=== PATIENT | male | born 1955 | race Caucasian/White ===

== ENCOUNTER → 2017-02-22 | Outpatient (CLI) | payer BC ==
[2017-02-22 11:49] LABS: Basophils % (A) 1 %; CH 31.9; CHCM 33.4; Eosinophils # (A) 0.2 k/uL (0-0.7); Eosinophils % (A) 2 %; HCT 50.5 % (39.0-53.0); HDW 2.28; HGB 16.2 gm/dL (13.0-17.5); Luc # (Auto) 0.22; Luc % (Auto) 3; Lymphocytes # (A) 2.3 k/uL (1.0-4.8); Lymphocytes % (A) 30 %; MCH 30.8 pg (25.0-35.0); MCV 96.1 fL (80.0-100.0); Mean Platelet Volume 7.2; Monocytes # (A) 0.7 k/uL (0-1.0); Monocytes % (A) 9 %; Neutrophils # (A) 4.2 k/uL (1.3-7.7); Neutrophils % (A) 55 %; RBC 5.25 m/uL (4.30-5.90); RDW 14.2 % (11.5-15.5); WBC 7.5 k/uL (3.8-10.6); WBC (Perox) 7.43
[2017-02-22 11:57] LABS: Prothrombin Time 9.8 sec (9.0-12.0)
[2017-02-22 12:19] LABS: Anion Gap 13 mmol/L; Blood Urea Nitrogen 17 mg/dL (9-20); Carbon Dioxide 26 mmol/L (22-30); Chloride 103 mmol/L (98-107); Non-African American GFR(MDRD) >60 (>60 ml/min/1.73 sqM); Potassium 4.4 mmol/L (3.5-5.1); Sodium 142 mmol/L (137-145)
[2017-02-22 12:58] LABS: Appearance,Urine Clear (Clear); Bilirubin,Urine Negative (Negative); Glucose,Urine (UA) Negative (Negative); Ketones,Urine Negative (Negative); Leukocyte Esterase,Urine Negative (Negative); Nitrite,Urine Negative (Negative); PH, Urine 5.5 (5.0-8.0); Protein,Urine Negative (Negative); Specific Gravity,Urine 1.018 (1.001-1.035); UA Billing (MACRO vs. MICRO) CHEM; Urobilinogen,Urine <2.0 mg/dL (<2.0)
== END | disposition home or self-care (01) ==
LOC: LABPAT 11:11
PROVIDERS: ATTEND Surgery
DX: Z01.812 Encounter for preprocedural laboratory examination (principal); I71.4 Abdominal aortic aneurysm, without rupture; Z79.01 Long term (current) use of anticoagulants
CPT/HCPCS: 36415; 80051; 81003; 82565; 84520; 85025; 85610; 85730; 86850; 86900; 86901

== ENCOUNTER → 2017-04-24 | Outpatient (CLI) | payer BC ==
--- NOTE | 2017-04-24 09:23 | CT ---
EXAMINATION TYPE: CT angio abdomen pelvis DATE OF EXAM: 04/24/2017 COMPARISON: 02/06/2017 HISTORY: 61-year-old male Complication of Vascular Prosthetic Device TECHNIQUE: Contiguous axial scanning of the abdomen and pelvis before and after administration of 100 ml Omnipaque 300 IV contrast. Imaging performed in the arterial phase. Delayed images were acquired . Coronal and sagittal MIP reconstructions performed. Additional 3-D reconstructions generated on a d edicated independent workstation. CT DLP: 3166 mGycm Automated exposure control for dose reduction was used. FINDINGS: Heart normal size without pericardial effusion. Some coronary vessel calcifications are noted and a m arker for coronary artery disease. Lung bases clear without pleural effusion. Liver enlarged measuring 21.4 cm craniocaudal. There is diffuse low attenuation suggesting fatty infi ltration. Portal venous system appears patent. No biliary ductal dilatation. Gallbladder, adrenal glands, left kidney, spleen, and pancreas appear within normal limits. Redemonstrated 5.1 cm exophytic cyst from the lower pole right kidney. No dilated small bowel, free fluid, or free air. No mesenteric or retroperitoneal lymphadenopathy. Scattered mild to moderate stool without pericolonic inflammatory change. Redundant sigmoid colon. Small fat-containing left indirect inguinal hernia. Prostate gland mildly enlarged at 5.3 cm wide. Bl adder partially urine distended. No abnormal fluid collection in the pelvis pelvic lymphadenopathy se en. Postsurgical changes of aortobiiliac endovascular stent graft repair. The proximal landing zone is ju st below the level of the celiac axis takeoff. The visceral arteries appear to satisfactorily opacifi ed. The [place] sac measures up to 5.1 cm along the infrarenal segment versus 5.2 cm, previously. Uppe r abdominal aorta just after the SMA takeoff measures up to 3.1 cm, not significantly changed. Mid ab dominal aorta below the renal artery takeoffs measures 4.5 cm, not significantly changed. Right and left common iliac arteries at the level of the distal stents measure 1.5 and 1.6 cm versus approximately 1.3 and 1.5 cm, previously. There is no evidence for abnormal opacification extending within the [place] sac or evidence of a leak into the [place] sac on the delayed images. Bones: Mild degenerative changes at the hips. Degenerative changes at the SI joints and mid to lower lumbar spine. Endplate spondylosis lower thoracic spine. IMPRESSION: 1. AORTOBIILIAC ENDOVASCULAR STENT GRAFT. PROXIMAL LANDING ZONE IS JUST BELOW THE CELIAC AXIS TAKEOFF . 2. NO EVIDENCE FOR STENT COMPLICATION OR ENDOLEAK. THE LARGEST PORTION OF THE ENTERPRISE SAC IS ESSENTIAL LY STABLE IN SIZE (5.1 CM VERSUS 5.2 CM, PREVIOUSLY). 3. HEPATOMEGALY AND HEPATIC STEATOSIS. 4. SMALL FAT-CONTAINING LEFT INGUINAL HERNIA. 5. PROSTATOMEGALY (5.3 CM WIDE).
== END | disposition home or self-care (01) ==
LOC: RADCTMAIN 07:23
PROVIDERS: ATTEND Surgery
DX: K76.0 Fatty (change of) liver, not elsewhere classified (principal); R16.0 Hepatomegaly, not elsewhere classified; K40.90 Unilateral inguinal hernia, without obstruction or gangrene, not specified as recurrent; N40.0 Benign prostatic hyperplasia without lower urinary tract symptoms; Z95.828 Presence of other vascular implants and grafts
CPT/HCPCS: 74174; Q9967